=== PATIENT | female | born 1970 | race Caucasian/White ===

== ENCOUNTER → 2017-04-23 | Outpatient (CLI) | payer OTHER | LOC: FIMAGING 13:54 | PROVIDERS: ATTEND Obstetrics & Gynecology | DX: Z12.31 Encounter for screening mammogram for malignant neoplasm of breast (principal) | CPT/HCPCS: G0202 ==

== ENCOUNTER 2017-05-19 19:03 | Emergency (ER) | payer OTHER ==
--- NOTE | 2017-05-19 19:26 | EDPHY ---
H & P Stated Complaint: PCP did routine lab work K was low, had redrawn was low again 2.4 - Personal History LMP (Females 10-55): Post Menopausal EDC: 12/07/16 Current Tetanus Diphtheria and Acellular Pertussis (TDAP): Yes Tetanus Vaccine Date: 2009 - Medical/Surgical History Hx Asthma: No Hx Chronic Respiratory Disease: No Hx Diabetes: No Hx Cardiac Disease: No Hx Renal Disease: No Hx Cirrhosis: No Hx Alcoholism: No Hx HIV/AIDS: No Hx Splenectomy or Spleen Trauma: No Other PMH: hypothyroid, non hodkins lymphoma, scoliosis,. spinal fusion, SB Resection, breat biopsy, tonsilectomy, appendectomy. - Social History Smoking Status: Never smoked Time Seen by Provider: 05/19/17 19:25 Constitutional: Initial Vital Signs Temperature (C) 37.1 C 05/19/17 19:07 Heart Rate 81 05/19/17 19:07 Respiratory Rate 18 05/19/17 19:07 Blood Pressure 125/89 H 05/19/17 19:07 O2 Sat (%) 97 05/19/17 19:07 O2 Delivery Mode Room Air Allergies/Adverse Reactions: Penicillins Allergy (Verified 05/19/17 19:07) Home Medications: Medication Instructions Recorded Synthroid 50 mcg (*) 05/19/17 Potassium Cl [Klor-Con 20 meq (*)] 40 meq PO DAILY #10 tab 05/20/17 Medical Decision Making ED Course/Re-evaluation: CHIEF COMPLAINT: Low potassium HISTORY OF PRESENT ILLNESS: This patient is a 47 year old female presenting at the request of her primary care physician for evaluation of low potassium. REVIEW OF SYSTEMS: A 10 point review of systems was performed and is negative with the exception of the elements mentioned in the history of present illness. PHYSICAL EXAM: HR, BP, O2 Sat, RR. Temp noted General Appearance: Alert, well hydrated, appropriate, and non-toxic appearing. Head: Atraumatic without scalp tenderness or obvious injury Eyes: Pupils equal, round, reactive to light and accommodation, EOMI, no trauma , no injection. Ears: Clear bilaterally, no perforation, normal landmarks Nose: Atraumatic, no rhinorrhea, clear. Throat: There is no erythema or exudates, no lesions, normal tonsils, mucus membranes moist. Neck: Supple, 2+ carotid upstroke, nontender, no lymphadenopathy. Respiratory: No retractions, no distress, no wheezes, and no accessory muscle use. Lungs are clear to auscultation bilaterally. Cardiovascular: Regular rate and rhythm, no murmurs, rubs, or gallops. Bilateral carotid, radial, dorsalis pedis, and posterior tibial pulses intact. Good capillary refill all extremities. Gastrointestinal: Abdomen is soft, nontender, non-distended, no masses, no rebound, no guarding, no peritoneal signs. Musculoskeletal: Normal active ROM of all extremities, atraumatic. Neurological: Alert, appropriate, and interactive. The patient has normal DTRs and non-focal cranial nerves, motor, sensory, and cerebellar exam. Skin: No rashes, good turgor, no nodules on palpation. Past medical history: Past surgical history: Family history: Social history: DIAGNOSTICS/PROCEDURES/CRITICAL CARE TIME: DIFFERENTIAL DIAGNOSIS: MEDICAL DECISION MAKIN:21 Reassessed patient. [] Administered. Plan for repeat lab work. (Kin Bal) I took over care of this patient at 11:00 p.m., the patient is here for hypokalemia and EKG changes. She is receiving both IV and oral potassium. She is to receive another 40 mEq and have her potassium and EKG rechecked. EKG time is 11:52 p.m.; EKG shows a narrow complex normal sinus rhythm with a ventricular rate of 77. The GA, QRS, QT intervals are within normal limits. There are no ST-T wave changes indicative of ischemic or injury pattern. Nonspecific T-wave abnormalities still present but diffuse T-wave inversions/ depressions significantly reduced in comparison to prior EKGs. No obvious Q- waves. No evidence of right heart strain. Interpreted by me. 12:30 a.m., patient re-evaluated. Results of 3rd potassium drug discussed with her and her Dr. Luna who is a former emergency physician at this facility. Repeat potassium at this time is 3.1. Plan will be to discharge the patient home with oral potassium replacement, 40 mEq daily for the next 4 days. She will follow up with her primary care physician, Dr. Jignesh Weaver, on Friday of this week for repeat potassium blood draw and further management as needed. Both the patient and her are in agreement with this plan. Return to emergency department precautions discussed. All of their questions were answered. The patient was discharged home in good condition. (Melissa Bustillos) - Data Points Laboratory Results: Laboratory Results 05/19/17 19:33 05/19/17 05/19/17 05/19/17 23:55 22:00 19:33 POC Hgb 11.6 gm/dL L gm/dL 12.6 gm/dL gm/dL (12.6-16.3) (12.6-16.3) POC Hct 34 % L % 37 % L % (38-47) (38-47) POC Sodium 144 mEq/L mEq/L 141 mEq/L mEq/L (134-144) (134-144) Sodium 136 mEq/L mEq/L (134-144) POC Potassium 3.1 mEq/L L mEq/L 2.8 mEq/L L mEq/L (3.3-5.0) (3.3-5.0) Potassium 2.4 mEq/L L* mEq/L (3.5-5.2) POC Chloride 107 mEq/L mEq/L 105 mEq/L mEq/L (97-110) (97-110) Chloride 101 mEq/L mEq/L (97-110) Carbon Dioxide 24 mEq/l mEq/l (22-31) Anion Gap 11 mEq/L mEq/L (8-16) POC BUN 5 mg/dL L mg/dL 5 mg/dL L mg/dL (7-23) (7-23) BUN 7 mg/dL mg/dL (7-23) Creatinine 0.8 mg/dL mg/dL (0.6-1.0) POC Creatinine 0.6 mg/dL mg/dL 0.7 mg/dL mg/dL (0.6-1.0) (0.6-1.0) Estimated GFR > 60 Glucose 84 mg/dL mg/dL (70-100) POC Glucose 100 mg/dL mg/dL 97 mg/dL mg/dL (70-100) (70-100) Calcium 10.3 mg/dL mg/dL (8.5-10.4) Magnesium 1.9 mg/dL mg/dL (1.6-2.3) Medications Given: Discontinued Medications Magnesium Sulfate (Magnesium Sulf 2 Gm (Premix)) 50 mls @ 50 mls/hr IV EDNOW ONE Stop: 05/19/17 20:59 Last Admin: 05/19/17 20:39 Dose: 50 mls Potassium Chloride (Potassium Cl 10 Meq (Premix)) 100 mls @ 100 mls/hr IV Q1H JOSE MANUEL Stop: 05/19/17 21:59 Last Admin: 05/19/17 22:41 Dose: 100 mls Sodium Chloride (Ns) 1,000 mls @ 0 mls/hr IV EDNOW ONE; Wide Open PRN Reason: Protocol Stop: 05/19/17 20:23 Last Admin: 05/19/17 20:41 Dose: 1,000 mls Potassium Chloride (Potassium Cl 10 Meq (Premix)) 100 mls @ 100 mls/hr IV Q1H JOSE MANUEL Stop: 05/20/17 00:14 Last Admin: 05/19/17 22:39 Dose: 100 mls Potassium Chloride (Klor Packets) 20 meq PO EDNOW ONE Stop: 05/19/17 20:31 Last Admin: 05/19/17 20:41 Dose: 20 meq Potassium Chloride (Potassium Chloride Oral Liquid) 20 meq PO EDNOW ONE Stop: 05/19/17 22:14 Last Admin: 05/19/17 22:37 Dose: 20 meq Point of Care Test Results: 05/19/17 05/19/17 22:00 23:55 POC Sodium 141 144 POC Potassium 2.8 L 3.1 L POC Chloride 105 107 POC BUN 5 L 5 L POC Creatinine 0.7 0.6 POC Glucose 97 100 Departure - Departure Disposition: Home, Routine, Self-Care Clinical Impression: Hypokalemia Condition: Good Instructions: Hypokalemia (ED) Additional Instructions: Read and follow provided instructions. Follow-up with your primary care physician, Dr. Jignesh Weaver, on Friday of this week for repeat potassium blood draw and further potassium replacement as needed. Take medication as prescribed only. Return to the emergency department for heart palpitations, muscle weakness or other serious concerns. Referrals: Jignesh Wevaer MD [Primary Care Provider] - As per Instructions Prescriptions: Potassium Cl [Klor-Con 20 meq (*)] 40 meq PO DAILY #10 tab
--- NOTE | 2017-05-19 19:38 | CPEKG ---
Heart Rate: 84 RR Interval: 714 P-R Interval: 164 QRSD Interval: 82 QT Interval: 328 QTC Interval: 388 P [place]: 55 QRS [place]: 46 T Wave [place]: 261 EKG Severity - ABNORMAL ECG - EKG Impression: SINUS RHYTHM EKG Impression: ABNORMAL T, CONSIDER ISCHEMIA, DIFFUSE LEADS Electronically Signed By: Kin Bal 19-May-2017 22:41:12
[2017-05-19 19:55] LABS: ANION GAP 11 mEq/L (8-16); CALCIUM 10.3 mg/dL (8.5-10.4); CARBON DIOXIDE 24 mEq/l (22-31); CHLORIDE 101 mEq/L (97-110); CREATININE 0.8 mg/dL (0.6-1.0); GLOMERULAR FILTRATION RATE > 60; GLUCOSE 84 mg/dL (70-100); MAGNESIUM 1.9 mg/dL (1.6-2.3); SODIUM 136 mEq/L (134-144)
[2017-05-19] MEDS ORDERED: MAGNESIUM SULF 2 GM/WATER 50 ML IV ONE (20:00)
[2017-05-19 20:04] LABS: POTASSIUM 2.4 mEq/L (3.5-5.2)
[2017-05-19] MEDS ORDERED: NS 1,000 ML IV ONE (20:22)
[2017-05-19] MEDS ORDERED: POTASSIUM CL 10 MEQ TAB PO ONE (20:23)
[2017-05-19] MEDS ORDERED: POTASSIUM CL 20 MEQ PKT ONE (20:29)
[2017-05-19] MEDS ORDERED: POTASSIUM CL 20 MEQ PKT PO ONE (20:30)
[2017-05-19] MEDS: POTASSIUM Cl (KCl) 100 ML IV SCH ×2 (20:40→22:41)
[2017-05-19] MEDS ORDERED: POTASSIUM CL 20 MEQ/15 ML UDCUP PO ONE (22:13)
[2017-05-19] MEDS ORDERED: POTASSIUM Cl (KCl) 100 ML IV SCH (22:15)
[2017-05-19] MEDS ORDERED: POTASSIUM CL 20 MEQ TAB ONE (22:36)
--- NOTE | 2017-05-19 23:54 | CPEKG ---
Heart Rate: 77 RR Interval: 779 P-R Interval: 168 QRSD Interval: 72 QT Interval: 380 QTC Interval: 431 P [place]: 74 QRS [place]: 64 T Wave [place]: -72 EKG Severity - ABNORMAL ECG - EKG Impression: SINUS RHYTHM EKG Impression: NONSPECIFIC T ABNORMALITIES, DIFFUSE LEADS Electronically Signed By: Melissa Bustillos 20-May-2017 01:24:01
[2017-05-20 00:49] VITALS: RESP 16; O2SAT 97
[2017-05-20 00:52] VITALS: BP 118/67; PULSE 71; TEMP 98.1
--- NOTE | 2017-05-20 08:22 | CPEKG ---
Heart Rate: 72 RR Interval: 833 P-R Interval: 168 QRSD Interval: 82 QT Interval: 356 QTC Interval: 390 P [place]: 52 QRS [place]: 50 T Wave [place]: -69 EKG Severity - ABNORMAL ECG - EKG Impression: SINUS RHYTHM EKG Impression: ABNORMAL T, CONSIDER ISCHEMIA, DIFFUSE LEADS Electronically Signed By: Reagan Jane 21-May-2017 13:53:46
== END 2017-05-20 00:52 | disposition home or self-care (01) ==
DX: E87.6 Hypokalemia (principal); E86.9 Volume depletion, unspecified
CPT/HCPCS: 82947-QW; 96365

== ENCOUNTER → 2018-06-16 | Outpatient (CLI) | payer OTHER | LOC: FIMAGING 14:16 | PROVIDERS: ATTEND Internal Medicine | DX: Z12.31 Encounter for screening mammogram for malignant neoplasm of breast (principal) ==